=== PATIENT | male | born 1985 | race Caucasian/White ===

== ENCOUNTER 2016-10-06 09:31 | Emergency (ER) | payer OTHER ==
[2016-10-06 09:39] VITALS: BP 149/93; BMI 28.0
--- NOTE | 2016-10-06 10:44 | DR.GENAD ---
HPI - PCP Primary Care Physician: Sanjay - HPI Comment HPI Comment: Painful right ring finger started yesterday. Pain is worse today and redness is extending. He denies trauma and insect bite but remembers cutting his fingernails 3-4 days ago. - Complaint/Symptoms Chief Complaint:: painful finger. - Nurses notes reviewed Nurses Notes Review: Yes - Source History Provided: Patient - Mode of Arrival Mode of Arrival: Ambulatory - Timing Onset of Chief Complaint: 10/06/16 - Duration Duration: Constant How lon Duration: Days - Location Location: R ring finger - Severity Severity: Moderate PMH - PMH Past Medical History: No Past Medical History: GERD Past Surgical History: No Surgical History: Abdominal Surgery - Family History History of Family Medical Conditions: Yes Family Medical History: Diabetes Mellitus, Coronary Artery Disease, Hypertension - Social History Does patient currently use any type of tobacco product: No Have you used tobacco products in the last 12 months: No Type of Tobacco Use: Cigarettes How many years tobacco product used: 14 Alcohol Use: None Do you use any recreational Drugs:: No Lives With: Spouse Lives Where: Home - infectious screening In the last 2 months have you had wt loss of >10#?: NO Have you had fever, night sweats or hemotysis?: No Have you traveled outside the country in the last 6 months?: No Isolation: Standard ROS - Review of Systems Constitutional: No Symptoms Reported Respiratoy: No Symptoms Reported Cardiovascular: No Symptoms Reported Gastrointestinal/Abdominal: No Symptoms Reported Integumentary: No Symptoms Reported Hematologic/Lymphatic: No Symptoms Reported All Other Systems: Reviewed and Negative PE - Vital Signs Vitals: Temperature 99.6 F Pulse Rate 99 Respiratory Rate 20 Blood Pressure 149/93 O2 Sat by Pulse Oximetry 97 - Chest Chest Inspection: Normal Inspection - Respiratory Respiratory Exam: Normal Lung Sounds Bilat Respiratory Exam: Bilateral Clear to Auscultation - Cardiovascular Cardiovascular Exam: Regular Rate, Normal Rhythm, Normal Heart Sounds - Extremities Extremities Exam: Other (R ring finger with redness and TTP. No purulence noted but fingernails are extremely short.) - Neurologic Neurological Exam: Alert, Oriented X3, CN II-XII Intact - Psychiatric Psychiatric Exam: Normal Affect - Skin Skin Exam: Warm, Dry, Intact, Normal Color MDM - Differential Diagnosis Differential Diagnosis: paronychia, cellulitis, trauma Course - Reevaluation 1st: Unchanged - Education/Counseling Education/Counseling: Patient Educated On: Treatment, Diagnosis, Prognosis, Needs for Follow Up ROR - Labs Reviewed Laboratory Results Reviewed?: No - Diagnosis Discharge Problem: Paronychia of finger of right hand, Cellulitis - Discharge Plan Disposition: 01 HOME, SELF-CARE Condition: Stable - Follow ups/Referrals Follow ups/Referrals: Bakari Grace [Primary Care Provider] - 3 days - Instructions Instructions: Paronychia, Fingertip Infection, Paronychia, [id number]
[2016-10-06] MEDS ORDERED: TORADOL 60 MG VIAL IM ONE (10:49)
[2016-10-06] MEDS ORDERED: ROCEPHIN VIAL 2 GM IM NR (11:00)
[2016-10-06] MEDS ORDERED: TORADOL 60 MG VIAL ONE (11:13)
== END 2016-10-06 11:47 | disposition home or self-care (01) ==
LOC: ER 09:49
DX: L03.011 Cellulitis of right finger (principal)
CPT/HCPCS: 96372; 99282; J1885

== ENCOUNTER 2017-04-25 17:53 | Emergency (ER) | payer OTHER ==
[2017-04-25 18:05] VITALS: BMI 28.0
--- NOTE | 2017-04-25 18:20 | DR.GENAD ---
HPI - PCP Primary Care Physician: nfd - Complaint/Symptoms Chief Complaint Doctors Comments: Jeferson admits to vomiting and diarrhea for one day. He denies fever. Chief Complaint:: pt stated he has been have abd pain with nausea and his bowels running off - Source History Provided: Patient - Mode of Arrival Mode of Arrival: Ambulatory - Timing Onset of Chief Complaint: 04/23/17 PMH - PMH Past Medical History: Yes Past Medical History: Hypertension Past Surgical History: Yes Surgical History: Abdominal Surgery - Family History History of Family Medical Conditions: Yes Family Medical History: Diabetes Mellitus, Coronary Artery Disease, Hypertension - Social History Does patient currently use any type of tobacco product: Yes Have you used tobacco products in the last 12 months: Yes Type of Tobacco Use: Cigarettes How many years tobacco product used: 10 Does any household member use tobacco: Yes Alcohol Use: None Do you use any recreational Drugs:: No Lives With: Family Lives Where: Home - infectious screening In the last 2 months have you had wt loss of >10#?: NO Have you had fever, night sweats or hemotysis?: No Have you traveled outside the country in the last 6 months?: No Isolation: Standard ROS - Review of Systems Eyes: No Symptoms Reported ENTM: No Symptoms Reported Respiratoy: No Symptoms Reported Cardiovascular: No Symptoms Reported Gastrointestinal/Abdominal: No Symptoms Reported Genitourinary: No Symptoms Reported Neurological: No Symptoms Reported Musculoskeletal: No Symptoms Reported Integumentary: No Symptoms Reported Hematologic/Lymphatic: No Symptoms Reported Endocrine: No Symptoms Reported Psychiatric: No Symptoms Reported All Other Systems: Reviewed and Negative PE - Vital Signs Vitals: Temperature 98.7 F Pulse Rate 98 Respiratory Rate 16 Blood Pressure 125/79 O2 Sat by Pulse Oximetry 98 - General Limitations: No Limitations General Appearance: Alert - Head Head Exam: Normal Inspection, Atraumatic - Eyes Eye exam: PERRL, EOMI - ENT ENT Exam: Normal Exam, Normal Oropharynx External Ear Exam: Normal External Inspection TM/Canal Exam: Bilateral Normal Nose Exam: Normal Nose Exam Mouth Exam: Normal Inspection Throat Exam: Normal Inspection - Neck Neck Exam: Normal Inspection - Chest Chest Inspection: Normal Inspection - Respiratory Respiratory Exam: Normal Lung Sounds Bilat Respiratory Exam: Bilateral Clear to Auscultation - Cardiovascular Cardiovascular Exam: Regular Rate, Normal Rhythm - Abdominal Exam Abdominal Exam: Normal Inspection, Normal Bowel Sounds Abdominal Tenderness: negative: RUQ, RLQ, LUQ, LLQ, Epigastrium, Suprapubic, Diffuse, Mild, Moderate, Severe, Other - Extremities Extremities Exam: Normal Inspection, Full ROM - Back Back Exam: Normal Inspection - Neurologic Neurological Exam: Alert, Oriented X3, CN II-XII Intact - Psychiatric Psychiatric Exam: Normal Affect, Normal Mood - Skin Skin Exam: Warm, Dry, Intact Course - Reevaluation 1st: Improved ROR - Labs Reviewed Laboratory Results Reviewed?: Yes (negative influenza) Result Diagrams: 04/25/17 18:38 04/25/17 18:38 Laboratory: WBC 6.5 X10^3/uL (3.6-10.0) 04/25/17 18:38 RBC 5.10 X10^6/uL (4.7-6.0) 04/25/17 18:38 Hgb 16.2 g/dL (13.5-18.0) 04/25/17 18:38 Hct 46.1 % (42.0-54.0) 04/25/17 18:38 MCV 90.6 fL (80.0-100.0) 04/25/17 18:38 MCH 31.8 pg (27.0-34.0) 04/25/17 18:38 MCHC 35.1 g/dL (33.0-35.0) H 04/25/17 18:38 RDW 13.3 % (11.6-16.5) 04/25/17 18:38 Plt Count 295 X10^3/uL (150.0-450.0) 04/25/17 18:38 MPV 7.5 fL (7.4-11.0) 04/25/17 18:38 Neut % 56.6 % (42.0-75.0) 04/25/17 18:38 Lymph % 28.8 % (21.0-51.0) 04/25/17 18:38 [place] % 10.4 % (0.0-13.0) 04/25/17 18:38 Eos % 3.8 % (0.9-2.9) H 04/25/17 18:38 Baso % 0.4 % (0.2-1.0) 04/25/17 18:38 Neut # 3.7 x10^3/uL (2.2-4.8) 04/25/17 18:38 Lymph # 1.9 X10^3/uL (1.3-2.9) 04/25/17 18:38 [place] # 0.7 x10^3/uL (0.3-0.8) 04/25/17 18:38 Eos # 0.2 x10^3/uL (0.0-0.2) 04/25/17 18:38 Baso # 0.0 X10^3/uL (0.0-0.1) 04/25/17 18:38 Absolute Nucleated RBC 0.0 /100WBC 04/25/17 18:38 Sodium 136 mmol/L (136-145) 04/25/17 18:38 Corrected Sodium 136 mmol/L (136-145) 04/25/17 18:38 Potassium 4.2 mmol/L (3.5-5.1) 04/25/17 18:38 Chloride 101 mmol/L (98-107) 04/25/17 18:38 Carbon Dioxide 30.5 mmol/L (21-32) 04/25/17 18:38 BUN 23 mg/dL (7-18) H 04/25/17 18:38 Creatinine 0.91 mg/dL (0.70-1.30) 04/25/17 18:38 Est GFR (MDRD) Af Amer > 60 (>60) 04/25/17 18:38 Est GFR (MDRD) Non-Af > 60 (>60) 04/25/17 18:38 Glucose 120 mg/dL (65-99) H 04/25/17 18:38 Calcium 9.4 mg/dL (8.5-10.1) 04/25/17 18:38 Influenza Type A (PCR) Negative (NEGATIVE) 04/25/17 18:38 Influenza Type B (PCR) Negative (NEGATIVE) 04/25/17 18:38 S. pyogenes (TEM-PCR) Not detected (NOT DETECT) 04/25/17 18:38 - Diagnosis Discharge Problem: Gastroenteritis - Discharge Plan Condition: Stable - Follow ups/Referrals Follow ups/Referrals: NFD,None [Primary Care Provider] - 3 days - Instructions
[2017-04-25] MEDS ORDERED: NS 1000 ML 1,000 ML IV ONE (18:22)
[2017-04-25] MEDS ORDERED: TORADOL 30 MG VIAL IVP ONE (18:23)
[2017-04-25] MEDS ORDERED: ZOFRAN INJ 4 MG VIAL IVP ONE (18:24)
[2017-04-25] MEDS ORDERED: TORADOL 30 MG VIAL ONE (18:27)
[2017-04-25] MEDS ORDERED: NS 1000 ML 1,000 ML ONE (18:27)
[2017-04-25] MEDS ORDERED: ZOFRAN INJ 4 MG VIAL ONE (18:27)
[2017-04-25 18:49] LABS: BASOPHILS % (AUTO) 0.4 % (0.2-1.0); EOSINOPHILS # (AUTO) 0.2 x10^3/uL (0.0-0.2); EOSINOPHILS % (AUTO) 3.8 % (0.9-2.9); HEMATOCRIT 46.1 % (42.0-54.0); HEMOGLOBIN 16.2 g/dL (13.5-18.0); LYMPHOCYTES # (AUTO) 1.9 X10^3/uL (1.3-2.9); LYMPHOCYTES % (AUTO) 28.8 % (21.0-51.0); MEAN CORPUSCULAR HEMOGLOBIN 31.8 pg (27.0-34.0); MEAN CORPUSCULAR HGB CONC 35.1 g/dL (33.0-35.0); MEAN CORPUSCULAR VOLUME 90.6 fL (80.0-100.0); MEAN PLATELET VOLUME 7.5 fL (7.4-11.0); MONOCYTES # (AUTO) 0.7 x10^3/uL (0.3-0.8); MONOCYTES % (AUTO) 10.4 % (0.0-13.0); NEUTROPHILS # (AUTO) 3.7 x10^3/uL (2.2-4.8); NEUTROPHILS % (AUTO) 56.6 % (42.0-75.0); PLATELET COUNT 295 X10^3/uL (150.0-450.0); RED CELL DISTRIBUTION WIDTH 13.3 % (11.6-16.5); WHITE BLOOD COUNT 6.5 X10^3/uL (3.6-10.0)
[2017-04-25 18:57] LABS: BLOOD UREA NITROGEN 23 mg/dL (7-18); CALCIUM 9.4 mg/dL (8.5-10.1); CARBON DIOXIDE 30.5 mmol/L (21-32); CHLORIDE 101 mmol/L (98-107); COR NA(FOR HYPERGLY) 136 mmol/L (136-145); CREATININE 0.91 mg/dL (0.70-1.30); SODIUM 136 mmol/L (136-145); eGFR BLACK RACES > 60 (>60); eGFR NON BLACK RACES > 60 (>60)
[2017-04-25 19:49] VITALS: BP 117/66
== END 2017-04-25 19:49 | disposition home or self-care (01) ==
LOC: ER 18:01
DX: K52.89 Other specified noninfective gastroenteritis and colitis (principal)
CPT/HCPCS: 36415; 80048; 85025; 87502; 87651; 96365; 96367; 96374; 96375; 99283; A4222; J1885; J2405

== ENCOUNTER 2017-07-24 08:58 | Emergency (ER) | payer SELFPAY ==
[2017-07-24 09:06] VITALS: BP 173/111; BMI 26.6
--- NOTE | 2017-07-24 09:23 | DR.GENAD ---
HPI - PCP Primary Care Physician: michael - Complaint/Symptoms Chief Complaint Doctors Comments: Patient is asking about the IVF in his right forearm, stating that it is crawling all over him. He does not want it. He does not give a reason other than the rat poison in his oatmeal. 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 Chief Complaint:: pt. stated he ate a oatmeal pie that had rat poision placed in it by his . patient jumped in ems as soon as the deputy editor in chief pulled up at his house. Self Treatment fo Chief Complaint: see nurses notes - Source History Provided: Patient - Mode of Arrival Mode of Arrival: Ambulatory - Timing Onset of Chief Complaint: 07/23/17 PMH - PMH Past Medical History: Yes Past Medical History: Hypertension Past Surgical History: Yes Surgical History: Abdominal Surgery - Family History History of Family Medical Conditions: Yes Family Medical History: Diabetes Mellitus, Coronary Artery Disease, Hypertension - Social History Does patient currently use any type of tobacco product: Yes Have you used tobacco products in the last 12 months: Yes Type of Tobacco Use: Cigarettes How many years tobacco product used: 10 Does any household member use tobacco: No Alcohol Use: None Do you use any recreational Drugs:: No Lives With: Family Lives Where: Home - infectious screening In the last 2 months have you had wt loss of >10#?: NO Have you had fever, night sweats or hemotysis?: No Have you traveled outside the country in the last 6 months?: No Isolation: Standard ROS - Review of Systems Eyes: No Symptoms Reported ENTM: No Symptoms Reported Respiratoy: No Symptoms Reported Cardiovascular: Other (tachycardia) Gastrointestinal/Abdominal: No Symptoms Reported Genitourinary: No Symptoms Reported Neurological: See HPI Musculoskeletal: No Symptoms Reported Integumentary: No Symptoms Reported Hematologic/Lymphatic: No Symptoms Reported Endocrine: No Symptoms Reported Psychiatric: No Symptoms Reported All Other Systems: Reviewed and Negative PE - Vital Signs Vitals: Temperature 98.3 F Pulse Rate 117 Respiratory Rate 20 Blood Pressure [Right Arm] 117/66 Blood Pressure 173/111 O2 Sat by Pulse Oximetry 100 - General General Appearance: Anxious - Head Head Exam: Normal Inspection, Atraumatic - Eyes Eye exam: Normal Appearance, PERRL, EOMI - ENT ENT Exam: Normal Exam External Ear Exam: Normal External Inspection TM/Canal Exam: Bilateral Normal Nose Exam: Normal Nose Exam Mouth Exam: Normal Inspection Throat Exam: Normal Inspection - Neck Neck Exam: Normal Inspection - Chest Chest Inspection: Normal Inspection - Respiratory Respiratory Exam: Normal Lung Sounds Bilat Respiratory Exam: Bilateral Clear to Auscultation - Cardiovascular Cardiovascular Exam: Tachycardia - Abdominal Exam Abdominal Exam: Normal Inspection, Normal Bowel Sounds Abdominal Tenderness: negative: RUQ, RLQ, LUQ, LLQ, Epigastrium, Suprapubic, Diffuse, Mild, Moderate, Severe, Other - Extremities Extremities Exam: Normal Inspection, Full ROM - Back Back Exam: Normal Inspection, Full ROM - Neurologic Neurological Exam: Alert, Oriented X3, CN II-XII Intact - Psychiatric Psychiatric Exam: Agitated, Flat Affect - Skin Skin Exam: Warm, Dry, Intact ROR - Labs Reviewed Result Diagrams: 07/24/17 09:20 07/24/17 09:20 Laboratory: WBC 6.4 X10^3/uL (3.6-10.0) 07/24/17 09:20 RBC 4.62 X10^6/uL (4.7-6.0) L 07/24/17 09:20 Hgb 14.6 g/dL (13.5-18.0) 07/24/17 09:20 Hct 41.5 % (42.0-54.0) L 07/24/17 09:20 MCV 90.0 fL (80.0-100.0) 07/24/17 09:20 MCH 31.7 pg (27.0-34.0) 07/24/17 09:20 MCHC 35.2 g/dL (33.0-35.0) H 07/24/17 09:20 RDW 13.4 % (11.6-16.5) 07/24/17 09:20 Plt Count 241 X10^3/uL (150.0-450.0) 07/24/17 09:20 MPV 7.3 fL (7.4-11.0) L 07/24/17 09:20 Neut % (Auto) 58.6 % (42.0-75.0) 07/24/17 09:20 Lymph % (Auto) 27.8 % (21.0-51.0) 07/24/17 09:20 [place] % (Auto) 9.8 % (0.0-13.0) 07/24/17 09:20 Eos % (Auto) 3.0 % (0.9-2.9) H 07/24/17 09:20 Baso % (Auto) 0.8 % (0.2-1.0) 07/24/17 09:20 Neut # (Auto) 3.8 x10^3/uL (2.2-4.8) 07/24/17 09:20 Lymph # (Auto) 1.8 X10^3/uL (1.3-2.9) 07/24/17 09:20 [place] # (Auto) 0.6 x10^3/uL (0.3-0.8) 07/24/17 09:20 Eos # (Auto) 0.2 x10^3/uL (0.0-0.2) 07/24/17 09:20 Baso # (Auto) 0.1 X10^3/uL (0.0-0.1) 07/24/17 09:20 Absolute Nucleated RBC 0.0 /100WBC 07/24/17 09:20 INR Target Range - 07/24/17 09:20 INR 0.94 (0.8-1.3) 07/24/17 09:20 APTT 26.9 SECONDS (22.9-36.5) 07/24/17 09:20 PTT Comment - 07/24/17 09:20 Sodium 138 mmol/L (136-145) 07/24/17 09:20 Corrected Sodium 139 mmol/L (136-145) 07/24/17 09:20 Potassium 3.4 mmol/L (3.5-5.1) L 07/24/17 09:20 Chloride 101 mmol/L (98-107) 07/24/17 09:20 Carbon Dioxide 25.9 mmol/L (21-32) 07/24/17 09:20 BUN 20 mg/dL (7-18) H 07/24/17 09:20 Creatinine 1.01 mg/dL (0.70-1.30) 07/24/17 09:20 Est GFR (MDRD) Af Amer > 60 (>60) 07/24/17 09:20 Est GFR (MDRD) Non-Af > 60 (>60) 07/24/17 09:20 Glucose 122 mg/dL (65-99) H 07/24/17 09:20 Calcium 8.7 mg/dL (8.5-10.1) 07/24/17 09:20 Corrected Calcium TNP 07/24/17 09:20 Total Bilirubin 0.90 mg/dL (0.2-1.0) 07/24/17 09:20 AST 14 Units/L (15-37) L 07/24/17 09:20 ALT 22 Units/L (12-78) 07/24/17 09:20 Alkaline Phosphatase 59 Units/L (46-116) 07/24/17 09:20 Total Protein 7.7 g/dL (6.4-8.2) 07/24/17 09:20 Albumin 4.4 g/dL (3.4-5.0) 07/24/17 09:20 Globulin 3.3 g/dL (2.5-4.5) 07/24/17 09:20 Albumin/Globulin Ratio 1.3 Ratio (1.1-2.1) 07/24/17 09:20 Specimen Type Clean catch urine 07/24/17 09:52 Urine Color Yellow (YELLOW) 07/24/17 09:52 Urine Appearance Hazy (CLEAR) 07/24/17 09:52 Urine pH 7.0 (5.0 - 8.0) 07/24/17 09:52 Ur Specific [place] 1.005 (1.000-1.030) 07/24/17 09:52 Urine Protein Negative (NEGATIVE) 07/24/17 09:52 Urine Glucose (UA) Negative (NEGATIVE) 07/24/17 09:52 Urine Ketones Negative (NEGATIVE) 07/24/17 09:52 Urine Occult Blood 1+ (NEGATIVE) 07/24/17 09:52 Urine Nitrite Negative (NEGATIVE) 07/24/17 09:52 Urine Bilirubin Negative (NEGATIVE) 07/24/17 09:52 Urine Urobilinogen Normal (NORMAL) 07/24/17 09:52 Ur Leukocyte Esterase Negative (NEGATIVE) 07/24/17 09:52 Urine RBC 0-2 /HPF (NONE SEEN) 07/24/17 09:52 Urine WBC None seen /HPF (NONE SEEN) 07/24/17 09:52 Ur Squamous Epith Cells Negative /HPF (NEGATIVE) 07/24/17 09:52 Urine Bacteria Negative /HPF (NEGATIVE) 07/24/17 09:52 Ur Culture Indicated? No/not indicated 07/24/17 09:52 Salicylates 3.9 mg/dL (2.8-20) 07/24/17 09:20 Urine Opiates Screen Negative (NEG=<300) 07/24/17 09:52 Urine Methadone Screen Negative (NEG=<300) 07/24/17 09:52 Acetaminophen 5.4 ug/mL (10-30) L 07/24/17 09:20 Ur Barbiturates Screen Negative (NEG=<200) 07/24/17 09:52 Ur Phencyclidine Scrn Negative (NEG=<25) 07/24/17 09:52 Ur Amphetamines Screen Positive (NEG=<1000) 07/24/17 09:52 U Benzodiazepines Scrn Negative (NEG=<200) 07/24/17 09:52 Urine Cocaine Screen Negative (NEG=<300) 07/24/17 09:52 U Marijuana (THC) Screen Negative (NEG=<50) 07/24/17 09:52 Ethyl Alcohol mg/dL < 3 mg/dL (0-19.9) 07/24/17 09:20 - Diagnosis Discharge Problem: Illicit drug use - Discharge Plan Disposition: 01 HOME, SELF-CARE Condition: Stable - Follow ups/Referrals Follow ups/Referrals: Bakari Grace [Primary Care Provider] - 3 days - Instructions
[2017-07-24] MEDS ORDERED: NS 1000 ML 1,000 ML ONE (09:25)
[2017-07-24 09:28] LABS: BASOPHILS # (AUTO) 0.1 X10^3/uL (0.0-0.1); BASOPHILS % (AUTO) 0.8 % (0.2-1.0); EOSINOPHILS # (AUTO) 0.2 x10^3/uL (0.0-0.2); HEMATOCRIT 41.5 % (42.0-54.0); HEMOGLOBIN 14.6 g/dL (13.5-18.0); LYMPHOCYTES # (AUTO) 1.8 X10^3/uL (1.3-2.9); LYMPHOCYTES % (AUTO) 27.8 % (21.0-51.0); MEAN CORPUSCULAR HEMOGLOBIN 31.7 pg (27.0-34.0); MEAN CORPUSCULAR HGB CONC 35.2 g/dL (33.0-35.0); MEAN PLATELET VOLUME 7.3 fL (7.4-11.0); MONOCYTES # (AUTO) 0.6 x10^3/uL (0.3-0.8); MONOCYTES % (AUTO) 9.8 % (0.0-13.0); NEUTROPHILS # (AUTO) 3.8 x10^3/uL (2.2-4.8); NEUTROPHILS % (AUTO) 58.6 % (42.0-75.0); PLATELET COUNT 241 X10^3/uL (150.0-450.0); RED BLOOD COUNT 4.62 X10^6/uL (4.7-6.0); RED CELL DISTRIBUTION WIDTH 13.4 % (11.6-16.5); WHITE BLOOD COUNT 6.4 X10^3/uL (3.6-10.0)
[2017-07-24] MEDS: NS 1000 ML 1,000 ML IV ONE ×2 (09:31→09:59)
[2017-07-24 09:38] LABS: ALANINE AMINOTRANSFERASE 22 Units/L (12-78); ALBUMIN 4.4 g/dL (3.4-5.0); ALKALINE PHOSPHATASE 59 Units/L (46-116); ASPARTATE AMINO TRANSFERASE 14 Units/L (15-37); BLOOD UREA NITROGEN 20 mg/dL (7-18); CALCIUM 8.7 mg/dL (8.5-10.1); CARBON DIOXIDE 25.9 mmol/L (21-32); CHLORIDE 101 mmol/L (98-107); COR NA(FOR HYPERGLY) 139 mmol/L (136-145); CREATININE 1.01 mg/dL (0.70-1.30); SODIUM 138 mmol/L (136-145); TOTAL PROTEIN 7.7 g/dL (6.4-8.2); eGFR BLACK RACES > 60 (>60); eGFR NON BLACK RACES > 60 (>60)
[2017-07-24 09:39] LABS: ACETAMINOPHEN 5.4 ug/mL (10-30); SALICYLATE 3.9 mg/dL (2.8-20)
[2017-07-24 10:03] LABS: BILIRUBIN,URINE NEGATIVE (NEGATIVE); BLOOD/HEMOGLOBIN,URINE 1+ (NEGATIVE); GLUCOSE, URINE NEGATIVE (NEGATIVE); KETONES,URINE NEGATIVE (NEGATIVE); LEUKOCYTE ESTERASE ,URINE NEGATIVE (NEGATIVE); NITRITES,URINE NEGATIVE (NEGATIVE); PROTEIN,URINE NEGATIVE (NEGATIVE); UROBILINOGEN,URINE NORMAL (NORMAL)
[2017-07-24 10:07] LABS: APPEARANCE,URINE HAZY (CLEAR); COLOR,URINE YELLOW (YELLOW)
[2017-07-24 10:15] LABS: RBC,URINE 0-2 /HPF (NONE SEEN)
[2017-07-24 10:16] LABS: BACTERIA,URINE NEGATIVE /HPF (NEGATIVE); SQUAMOUS EPITHELIAL CELL,UR NEGATIVE /HPF (NEGATIVE)
[2017-07-24 11:09] LABS: BLOOD ALCOHOL < 3 mg/dL (0-19.9)
== END 2017-07-24 09:50 | disposition home or self-care (01) | DRG 897 ==
LOC: ER 09:06
DX: F15.90 Other stimulant use, unspecified, uncomplicated (principal)
CPT/HCPCS: 36415; 80053; 80307; 81001; 85025; 85610; 85730; 93005; 93010; 96365; 96374; 99283; 99285; A4222; G0434; G6038; G6039; G6040